=== PATIENT | female | born 1945 | race Caucasian/White ===

== ENCOUNTER → 2016-10-16 | Outpatient (CLI) | payer MEDICARE, BC ==
[2016-10-16 13:49] LABS: Blood Urea Nitrogen 15 mg/dL (7-17); Non-African American GFR(MDRD) >60 (>60 ml/min/1.73 sqM)
--- NOTE | 2016-10-16 14:25 | CT ---
EXAMINATION TYPE: CT brain wo/w con DATE OF EXAM: 10/16/2016 COMPARISON: CT brain November 26, 2014 HISTORY: Follow up to brain aneurysm CT DLP: 2184 mGycm Automated exposure control for dose reduction was used. CONTRAST: CT scan of the head is performed without and with IV Contrast, patient injected with 100 mL of Omnipa que 300. FINDINGS: There is artifact from coil distal right vertebral artery redemonstrated. Adjacent stent graft is pre sent. There is artifact from coil near left MCA trifurcation redemonstrated and artifact from coil ne ar left A1 segment redemonstrated. Noncontrast images show no acute intracranial hemorrhage or midline shift. There is ventricular and s ulcal prominence consistent with mild age-related cerebral atrophy. There is low-attenuation in the p eriventricular white matter. Those old area of encephalomalacia left frontal lobe again seen. Postcon trast images show no abnormal enhancing masses. No obvious new large aneurysm is identified. IMPRESSION: No significant change from prior CT. Postsurgical changes redemonstrated. 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
== END | disposition home or self-care (01) ==
LOC: RADCTMAIN 12:59
PROVIDERS: ATTEND Family Medicine
DX: G31.9 Degenerative disease of nervous system, unspecified (principal); I67.82 Cerebral ischemia; Z86.73 Personal history of transient ischemic attack (TIA), and cerebral infarction without residual deficits
CPT/HCPCS: 82565; 84520; 70470; 36415; Q9967

== ENCOUNTER → 2018-07-05 | Outpatient (CLI) | payer MEDICARE, BC ==
--- NOTE | 2018-07-05 11:43 | CT ---
EXAMINATION TYPE: CT brain wo/w con DATE OF EXAM: 07/05/2018 COMPARISON: 10/16/2016 HISTORY: Follow up history of epilepsy and prior coiled aneurysms. CT DLP: 1647.2 mGycm Automated exposure control for dose reduction was used. CONTRAST: CT scan of the head is performed without and with IV Contrast, patient injected with 80 mL of Isovue 300. FINDINGS: There is artifact from coil distal right vertebral artery redemonstrated. Adjacent stent graft is pre sent. There is artifact from coil near left MCA trifurcation redemonstrated and artifact from coil ne ar left A1 segment redemonstrated. Post contrast images in these regions are nondiagnostic due to art ifact. Noncontrast images show no acute intracranial hemorrhage or midline shift. There is ventricular and s ulcal prominence consistent with mild age-related cerebral atrophy. There is low-attenuation in the p eriventricular white matter. Those old area of encephalomalacia left frontal lobe again seen. Postcon trast images show no abnormal enhancing masses. No obvious new large aneurysm is identified. Changes suggestive of previous mastoiditis. IMPRESSION: Markedly limited exam due to artifact from postsurgical change demonstrated no obvious ne w sizable aneurysm. Age- related atrophy and chronic small vessel ischemic change again seen with old left frontal infar ct all redemonstrated.
== END | disposition home or self-care (01) ==
LOC: RADCTMAIN 10:12
PROVIDERS: ATTEND Family Medicine
DX: G31.1 Senile degeneration of brain, not elsewhere classified (principal); I67.82 Cerebral ischemia; Z79.890 Hormone replacement therapy
CPT/HCPCS: 82565; 84520; 70470; 36415; Q9967